=== PATIENT | male | born 1965 | race Caucasian/White ===

== ENCOUNTER 2024-07-04 21:39 | Inpatient (IN) | payer OTHER, SELFPAY ==
[2024-07-04 22:00] VITALS: BP 139/86; PULSE 88; RESP 16; TEMP 36.8; O2SAT 92; BMI 38.6
[2024-07-04 22:30] VITALS: BP 145/91; PULSE 75; O2SAT 93
[2024-07-04 22:36] VITALS: BP 176/51; PULSE 59; O2SAT 100
--- NOTE | 2024-07-04 22:44 | CTR_ITS ---
PROCEDURE INFORMATION: Exam: CT Abdomen And Pelvis With Contrast Exam date and time: 07/04/2024 11:23 PM Age: 58 years old Clinical indication: Nausea and vomiting; Abdominal pain; Generalized; Prior surgery; Surgery date: 6+ months; Surgery type: Gb. Colon resection due to diverticulitis; C/O diffuse abd pain with n/v/d. History of sbo. TECHNIQUE: Imaging protocol: Computed tomography of the abdomen and pelvis with contrast. Radiation optimization: All CT scans at this facility use at least one of these dose optimization techniques: automated exposure control; mA and/or kV adjustment per patient size (includes targeted exams where dose is matched to clinical indication); or iterative reconstruction. Contrast material: OMNI 350; Contrast volume: 100 ml; Contrast route: INTRAVENOUS (IV); COMPARISON: CR (CHEST, ) 05/24/2024 8:41 PM RADIATION DOSE METRICS: Total DLP (mGy-cm): 1471.56 FINDINGS: Lungs: There is a 6.6 mm sized noncalcified pulmonary nodule posterior left lower lobe image number 4 of series 8. For patients at low risk (minimal or absent history of smoking and of other known risk factors), recommend CT Chest at 3-6 months, then consider CT Chest at 18-24 months. For patients at high risk (history of smoking or of other known risk factors), recommend CT Chest at 3-6 months, then CT Chest at 18-24 months. (Reference: João) Liver: There is a diffuse decrease in hepatic parenchymal density, consistent with moderate fatty infiltration. There is no focal abnormality within the liver. Gallbladder and biliary ducts: There has been a cholecystectomy. There is no common bile duct dilation. Pancreas: The pancreas is normal. Spleen: The spleen is normal. Adrenal glands: The adrenal glands are normal. Kidneys and ureters: The kidneys are normal. There is no evidence of hydronephrosis. There is no evidence of renal or ureteral calcifications. Stomach and bowel: There are postsurgical changes of partial sigmoid resection. Moderate diverticulosis is present in the distal colon. There is no evidence of colitis/diverticulitis. There are fluid distended loops of proximal to mid small bowel measuring up to 4 cm in diameter. The more distal small bowel is nondilated. Exact point of transition is not identified but these findings are worrisome for partial small bowel obstruction. Appendix: A normal appendix is identified. Intraperitoneal space: There is no evidence of free intraperitoneal fluid. Vasculature: The aorta is normal. Lymph nodes: There is no evidence of lymphadenopathy. Urinary bladder: Unremarkable as visualized. Reproductive: Unremarkable as visualized. Bones/joints: There is no evidence of acute fracture. Soft tissues: Unremarkable. CT/CT abdomen pelvis w con* [id number] IMPRESSION: 1. Partial small bowel obstruction 2. Fatty liver 3. Left lower lobe pulmonary nodule. Follow-up according to Fleischner society guidelines. REFERENCES: João Yeung, et al. Guidelines for Management of Incidental Pulmonary Nodules Detected on CT Images: From the Fleischner Society 2017. Radiology. 2017;284(1):228-243.
[2024-07-04 23:02] LABS: Basophils % 0.2 %; Eosinophils % 0.5 %; Lymphocytes # 1.1 10^3/uL (0.8-4.8); Lymphocytes % 13.4 %; Mean Corpuscular HGB Conc 33.5 g/dL (30-55); Mean Corpuscular Hemoglobin 29.9 pg (27-33); Mean Corpuscular Volume 89.2 fl (82-101); Mean Platelet Volume 10.3 fL (7.4-10.4); Monocytes # 1.4 10^3/uL (0.2-0.9); Monocytes % 16.5 %; Neutrophils # 5.82 10^3/uL (1.8-7.7); Neutrophils % 69.2 %; Nucleated Red Blood Cells % 0 %; Platelet Count 261 10^3/cmm (157-399); Red Blood Count 5.38 10^6/uL (3.85-5.65); Red Cell Distribution Width 14.1 % (12.1-15.1); White Blood Count 8.42 10^3/uL (3.29-11.43)
--- NOTE | 2024-07-04 23:02 | W.ED.ABDPA2 ---
Documented by User: KHALIF Jhaveri 07/05/24 00:36 HPI - Abdominal Pain General: Chief Complaint: Abdominal Pain Stated Complaint: sever abd pain, v/n/f Time Seen by Provider: 07/04/24 22:44 History of Present Illness: 58-year-old male patient comes in today for complaints of abdominal pain. Patient has a history of gallbladder removal, small bowel obstruction, colon resection secondary to diverticulitis, right lung surgery, diabetes mellitus, hypertension, patient reports nausea with abdominal pain since Friday. Patient reports bowel movements. Patient reports nausea with some vomiting. Associated Symptoms: Reports nausea and vomiting Related Data Previous Rx's Medication Instructions Recorded benzonatate 200 mg capsule 200 mg PO BID PRN cough #14 caps 05/24/24 Allergies Allergy/AdvReac Type Severity Reaction Status Date / Time MANAV Inhibitors Allergy ALGY-Hives Verified 07/04/24 22:03 metronidazole [From Flagyl] Allergy ALGY-Hives Verified 07/04/24 22:03 Review of Systems General: Reports: 10 or more systems reviewed and unremarkable except in HPI and below GI: Reports: abdominal pain, nausea and vomiting PFSH ED PFSH: Medical History (Updated 07/05/24 @ 01:41 by Wagner Desai DO) Diverticulosis Surgical History (Updated 07/05/24 @ 01:29 by Gali Rios MD) History of hemicolectomy S/P cholecystectomy Physical Exam Const: COMMON NORMALS: alert HENMT: COMMON NORMALS: normocephalic HEAD & SCALP: normocephalic Resp: COMMON NORMALS: normal respiratory effort GI: AUSCULTATION: Yes Hyperactive bowel sounds present PALPATION: Yes Firmness to palpation present (GI) (Mild distention) and Yes Tenderness to palpation present (GI) (Generalized tenderness) Extremity: COMMON NORMALS: normal to inspection Neuro: SENSORIUM/ORIENTATION: Yes alert Skin: COMMON NORMALS: turgor normal GENERAL SKIN EXAM: turgor normal Course Vital Signs: Vital signs: Vital Signs Temperature 98.3 F 07/04/24 22:00 Pulse Rate 88 07/04/24 22:00 Respiratory Rate 16 07/04/24 22:00 Blood Pressure 139/86 07/04/24 22:00 Pulse Oximetry 92 07/04/24 22:00 Oxygen Delivery Me thod Room Air 07/04/24 22:00 MDM - Abdominal Pain Medical Decision Making 58-year-old male patient comes in today with complaints of abdominal pain since Friday. Patient reports decreased passing of gas. Patient has had some bowel movements. Patient reports nausea with vomiting. Patient has had a history of bowel obstruction, colon resection, diverticulitis, right lung surgery, diabetes mellitus, hypertension, and cholecystectomy. Patient appears nontoxic. Patient appears in mild to moderate pain. Abdomen is slightly distended with increased bowel sounds. Differential diagnosis includes but not limited to bowel obstruction, ileus, enteritis, appendicitis, dehydration. 1235, Dr. Desai agreed to assume care of my patient. We are awaiting CT report. CT strongly suspicious for bowel obstruction. Lab Data 07/04/24 22:53 07/04/24 22:53 Labs/Radiology: Radiology Impressions Abdomen/Pelvis CT 07/04/24 22:44 IMPRESSION: 1. Partial small bowel obstruction 2. Fatty liver 3. Left lower lobe pulmonary nodule. Follow-up according to Fleischner society guidelines. REFERENCES: João Yeung et al. Guidelines for Management of Incidental Pulmonary Nodules Detected on CT Images: From the Fleischner Society 2017. Radiology. 2017;284(1):228-243. ADDENDUM: 07/05/24 0042 Addendum: THIS REPORT CONTAINS FINDINGS THAT MAY BE CRITICAL TO PATIENT CARE. The findings were verbally communicated via telephone conference with Dr. Desai at 12:41 AM ENTRY LEVEL ACCOUNT EXECUTIVE on 07/05/2024. The findings were acknowledged and understood. Laboratory Results WBC 8.42 10^3/uL (3.29-11.43) 07/04/24 22:53 RBC 5.38 10^6/uL (3.85-5.65) 07/04/24 22:53 Hgb 16.10 g/dL (11.27-16.99) 07/04/24 22:53 Hct 48.0 % (37-53) 07/04/24 22:53 MCV 89.2 fl (82-101) 07/04/24 22:53 MCH 29.9 pg (27-33) 07/04/24 22: MCHC 33.5 g/dL (30-55) 07/04/24 22:53 RDW 14.1 % (12.1-15.1) 07/04/24 22:53 Plt Count 261 10^3/cmm (157-399) 07/04/24 22:53 MPV 10.3 fL (7.4-10.4) 07/04/24 22:53 Neut % (Auto) 69.2 % 07/04/24 22:53 Lymph % (Auto) 13.4 % 07/04/24 22:53 Traill % (Auto) 16.5 % 07/04/24 22:53 Eos % (Auto) 0.5 % 07/04/24 22:53 Baso % (Auto) 0.2 % 07/04/24 22:53 Neut # (Auto) 5.82 10^3/uL (1.8-7.7) 07/04/24 22:53 Lymph # (Auto) 1.1 10^3/uL (0.8-4.8) 07/04/24 22:53 Traill # (Auto) 1.4 10^3/uL (0.2-0.9) H 07/04/24 22:53 Eos # (Auto) 0.0 10^3/uL (0.0-0.8) 07/04/24 22:53 Baso # (Auto) 0.0 10^3/uL (0.0-0.1) 07/04/24 22:53 Nucleated RBC % (auto) 0 % 07/04/24:53 Nucleated RBCs # 0.0 /100WBC 07/04/24 22:53 Sodium 138 mmol/L (136-145) 07/04/24 22:53 Potassium 3.9 mmol/L (3.5-5.1) 07/04/24 22:53 Chloride 96 mmol/L (98-107) L 07/04/24 22:53 Carbon Dioxide 25 mmol/L (22-29) 07/04/24 22:53 Anion Gap 20.9 (5-19) H 07/04/24 22:53 BUN 13 mg/dL (6-20) 07/04/24 22:53 Creatinine 1.2 mg/dL (0.7-1.2) 07/04/24 22:53 GFR Calculation 62.2 mL/min (90-130) L 07/04/24 22:53 Glucose 155 mg/dL (65-115) H 07/04/24 22:53 Calculated Osmolality 289 mOsm/kg (285-295) 07/04/24 22:53 Calcium 9.5 mg/dL (8.5-10.5) 07/04/24 22:53 Total Bilirubin 0.6 mg/dL (0.15-1.2) 07/04/24 22:53 AST 29 U/L (0-40) 07/04/24 22:53 ALT 35 U/L (0-41) 07/04/24 22:53 Alkaline Phosphatase 67 U/L (40-130) 07/04/24 22:53 Total Protein 7.9 g/dL (6.6-8.7) 07/04/24 22:53 Albumin 4.5 g/dL (3.5-5.2) 07/04/24 22:53 Globulin 3.4 g/dL (1.3-4.6) 07/04/24 22:53 Lipase 19 U/L (13-60) 07/04/24 22:53 Discharge Plan Discharge Patient Disposition: Admitted As Inpatient Clinical Impression: SBO (small bowel obstruction) Condition: Fair Prescriptions: No Action benzonatate 200 mg capsule 200 mg PO BID PRN (Reason: cough) Qty: 14 0RF Referrals: Francisco Alberts MD [Primary Care Provider] - Discharge Diet: Usual diet Discharge Activity: Increase activity as tolerated Patient Instructions: Back Pain (ED) Activity Restrictions/Additional Instructions: Follow-up with primary care. Coding Level of Care Code ED Quality Control Clerk for Chg Fwd Documented by User: Wagner Desai DO 07/05/24 01:41 HPI - Abdominal Pain General: Chief Complaint: Abdominal Pain Stated Complaint: sever abd pain, v/n/f Time Seen by Provider: 07/04/24 22:44 Related Data Previous Rx's Medication Instructions Recorded benzonatate 200 mg capsule 200 mg PO BID PRN cough #14 caps 05/24/24 Allergies Allergy/AdvReac Type Severity Reaction Status Date / Time MANAV Inhibitors Allergy ALGY-Hives Verified 07/04/24 22:03 metronidazole [From Flagyl] Allergy ALGY-Hives Verified 07/04/24 22:03 PFSH ED PFSH: Medical History (Updated 07/05/24 @ 01:41 by Wagner Desai DO) Diverticulosis Surgical History (Updated 07/05/24 @ 01:29 by Gali Rios MD) History of hemicolectomy S/P cholecystectomy Course Vital Signs: Vital signs: Vital Signs Temperature 98.3 F 07/04/24 22:00 Pulse Rate 88 07/04/24 22:00 Respiratory Rate 16 07/04/24 22:00 Blood Pressure 139/86 07/04/24 22:00 Pulse Oximetry 92 07/04/24 22:00 Oxygen Delivery Me thod Room Air 07/04/24 22:00 MDM - Abdominal Pain Medical Decision Making 58-year-old male patient comes in today with complaints of abdominal pain since Friday. Patient reports decreased passing of gas. Patient has had some bowel movements. Patient reports nausea with vomiting. Patient has had a history of bowel obstruction, colon resection, diverticulitis, right lung surgery, diabetes mellitus, hypertension, and cholecystectomy. Patient appears nontoxic. Patient appears in mild to moderate pain. Abdomen is slightly distended with increased bowel sounds. Differential diagnosis includes but not limited to bowel obstruction, ileus, enteritis, appendicitis, dehydration. 1235, Dr. Desai agreed to assume care of my patient. We are awaiting CT report. CT strongly suspicious for bowel obstruction. This patient was originally seen by KHALIF An.? I agree with his history, evaluation, and treatment. This patient has a small bowel obstruction, although no distinct transition point is seen. It is likely high-grade, as small bowel loops are distended to 4 cm. Spoke with surgery. Recommendations are IV fluids and NG tube placement. These have been ordered. The hospitalist is seeing the patient for admission. Surgery will consult. Lab Data 07/04/24 22:53 07/04/24 22:53 Labs/Radiology: Radiology Impressions Abdomen/Pelvis CT 07/04/24 22:44 IMPRESSION: 1. Partial small bowel obstruction 2. Fatty liver 3. Left lower lobe pulmonary nodule. Follow-up according to Fleischner society guidelines. REFERENCES: João Yeung et al. Guidelines for Management of Incidental Pulmonary Nodules Detected on CT Images: From the Fleischner Society 2017. Radiology. 2017;284(1):228-243. ADDENDUM: 07/05/24 0042 Addendum: THIS REPORT CONTAINS FINDINGS THAT MAY BE CRITICAL TO PATIENT CARE. The findings were verbally communicated via telephone conference with Dr. Desai at 12:41 AM ENTRY LEVEL ACCOUNT EXECUTIVE on 07/05/2024. The findings were acknowledged and understood. Laboratory Results WBC 8.42 10^3/uL (3.29-11.43) 07/04/24 22:53 RBC 5.38 10^6/uL (3.85-5.65) 07/04/24 22:53 Hgb 16.10 g/dL (11.27-16.99) 07/04/24:53 Hct 48.0 % (37-53) 07/04/24 22:53 MCV 89.2 fl (82-101) 07/04/24 22:53 MCH 29.9 pg (27-33) 07/04/24:53 MCHC 33.5 g/dL (30-55) 07/04/24 22:53 RDW 14.1 % (12.1-15.1) 07/04/24 22:53 Plt Count 261 10^3/cmm (157-399) 07/04/24 22:53 MPV 10.3 fL (7.4-10.4) 07/04/24 22:53 Neut % (Auto) 69.2 % 07/04/24 22:53 Lymph % (Auto) 13.4 % 07/04/24 22:53 Traill % (Auto) 16.5 % 07/04/24 22:53 Eos % (Auto) 0.5 % 07/04/24 22:53 Baso % (Auto) 0.2 % 07/04/24 22:53 Neut # (Auto) 5.82 10^3/uL (1.8-7.7) 07/04/24:53 Lymph # (Auto) 1.1 10^3/uL (0.8-4.8) 07/04/24 22:53 Traill # (Auto) 1.4 10^3/uL (0.2-0.9) H 07/04/24 22:53 Eos # (Auto) 0.0 10^3/uL (0.0-0.8) 07/04/24 22:53 Baso # (Auto) 0.0 10^3/uL (0.0-0.1) 07/04/24 22:53 Nucleated RBC % (auto) 0 % 07/04/24 22:53 Nucleated RBCs # 0.0 /100WBC 07/04/24 22:53 Sodium 138 mmol/L (136-145) 07/04/24 22:53 Potassium 3.9 mmol/L (3.5-5.1) 07/04/24 22:53 Chloride 96 mmol/L (98-107) L 07/04/24 22:53 Carbon Dioxide 25 mmol/L (22-29) 07/04/24 22:53 Anion Gap 20.9 (5-19) H 07/04/24 22:53 BUN 13 mg/dL (6-20) 07/04/24 22:53 Creatinine 1.2 mg/dL (0.7-1.2) 07/04/24 22:53 GFR Calculation 62.2 mL/min (90-130) L 07/04/24 22:53 Glucose 155 mg/dL (65-115) H 07/04/24 22:53 Calculated Osmolality 289 mOsm/kg (285-295) 07/04/24 22:53 Calcium 9.5 mg/dL (8.5-10.5) 07/04/24 22:53 Total Bilirubin 0.6 mg/dL (0.15-1.2) 07/04/24 22:53 AST 29 U/L (0-40) 07/04/24 22:53 ALT 35 U/L (0-41) 07/04/24 22:53 Alkaline Phosphatase 67 U/L (40-130) 07/04/24 22:53 Total Protein 7.9 g/dL (6.6-8.7) 07/04/24 22:53 Albumin 4.5 g/dL (3.5-5.2) 07/04/24 22:53 Globulin 3.4 g/dL (1.3-4.6) 07/04/24 22:53 Lipase 19 U/L (13-60) 07/04/24 22:53 All radiology interpretation(s) finalized by discharge Discharge Plan Discharge Patient Disposition: Admitted As Inpatient Clinical Impression: SBO (small bowel obstruction) Condition: Fair Prescriptions: No Action benzonatate 200 mg capsule 200 mg PO BID PRN (Reason: cough) Qty: 14 0RF Referrals: Francisco Alberts MD [Primary Care Provider] - Discharge Diet: Usual diet Discharge Activity: Increase activity as tolerated Patient Instructions: Back Pain (ED) Activity Restrictions/Additional Instructions: Follow-up with primary care. Coding Level of Care Code ED Quality Control Clerk for Alyssia Betancourt
[2024-07-04 23:18] LABS: Alanine Aminotransferase 35 U/L (0-41); Albumin Level 4.5 g/dL (3.5-5.2); Alkaline Phosphatase 67 U/L (40-130); Anion Gap 20.9 (5-19); Aspartate Amino Transferase 29 U/L (0-40); Blood Urea Nitrogen 13 mg/dL (6-20); Calcium 9.5 mg/dL (8.5-10.5); Carbon Dioxide 25 mmol/L (22-29); Chloride 96 mmol/L (98-107); Creatinine Clr Calc Pharmacy 93.2651; Globulin 3.4 g/dL (1.3-4.6); Glomerular Filtration Rate 62.2 mL/min (90-130); Glucose 155 mg/dL (65-115); Lipase 19 U/L (13-60); Osmolality Calculated 289 mOsm/kg (285-295); Potassium 3.9 mmol/L (3.5-5.1); Sodium 138 mmol/L (136-145); Total Bilirubin 0.6 mg/dL (0.15-1.2); Total Protein 7.9 g/dL (6.6-8.7)
[2024-07-04] MEDS: iohexol 350 mg/mL 500 mL Btl (per mL) IV (23:25)
[2024-07-04] MEDS: sodium chloride 0.9% 1,000 ML 999 ML IV (23:51)
[2024-07-04] MEDS: ondansetron 2 mg/ML SDV 2 mL 4 MG IVP (23:51)
[2024-07-05] VITALS (12 sets, daily range): BP systolic 118–155; BP diastolic 72–105; PULSE 69–83; RESP 14–17; TEMP 36.6–37.3; O2SAT 91–95; BMI 38.6
--- NOTE | 2024-07-05 00:53 | XRR_ITS ---
PROCEDURE INFORMATION: Exam: XR Chest Exam date and time: 07/05/2024 2:04 AM Age: 58 years old Clinical indication: Device placement; Ng tube; Check S/P ng placement; Additional info: Post ng tube TECHNIQUE: Imaging protocol: Radiologic exam of the chest. Views: 1 view. COMPARISON: 1. CR (CHEST, ) 05/24/2024 8:[address] abdomen pelvis w con* [id number] 07/04/2024 11:23 PM FINDINGS: Tubes, catheters and devices: NG tube satisfactorily positioned, with tip in the stomach. Lungs: Persistently low lung volumes with chronic elevation of the right hemidiaphragm. No consolidation or pulmonary edema. Small lung nodule seen on the CT abdomen in the left lower lobe not visualized on this chest radiograph. Pleural spaces: No pneumothorax or pleural effusion. Heart/Mediastinum: Cardiomediastinal silhouette is within normal limits. Bones/joints: No acute osseous abnormality. XR/XR chest 1V portable [id number] IMPRESSION: 1. No acute findings. 2. NG tube satisfactorily positioned, with tip in the stomach.
--- NOTE | 2024-07-05 01:01 | P.HP_ITS ---
Providers/Chief Complaint 2 Primary Care Provider: Francisco Alberts MD Chief Complaint: sever abd pain, v/n/f History of Present Illness Rodriguez Duke is a 58 year old male with relevant history of cholecystectomy, hemicolectomy, diverticulosis, presented with chief complaint of abdominal pain nausea vomiting. Workup in the ER consistent with high-grade bowel obstruction, NG tube placed. General surgery consulted. Patient had hemicolectomy in 2009, cholecystectomy 2012, symptoms started of abdominal pain nausea vomiting Friday, since Friday he has had experience 4 episodes of emesis, is at the bedside stating that he had a fever on Friday as well 1-1.6, patient is not endorsing any myalgias, shortness of breath, chest pain, last bowel movement was on Friday, no history of CHF, ND or coronary disease. Patient does not smoke. Drinks occasionally. Last episode of SBO was 2 years ago which was managed conservatively. CT abdomen pelvis impression: There are fluid distended loops of proximal to mid small bowel measuring up to 4 cm in diameter. The more distal small bowel is nondilated. Exact point of transition is not identified but these findings are worrisome for partial small bowel obstruction. Review of Systems 2 Const: Reports: fever(s) and chills Eyes: Denies: change in vision ENMT: Denies: throat pain Card: Denies: chest pain Resp: Denies: dyspnea GI: Reports: abdominal pain, nausea and vomiting Musc: Reports: back pain Medications/Allergies Home Medications Medication Instructions Recorded Confirmed Last Taken Type benzonatate 200 mg capsule 200 mg PO BID PRN cough #14 caps 05/24/24 Unknown Rx Allergies Allergy/AdvReac Type Severity Reaction Status Date / Time MANAV Inhibitors Allergy ALGY-Hives Verified 07/04/24 22:03 metronidazole [From Flagyl] Allergy ALGY-Hives Verified 07/04/24 22:03 PFSH Acute 2 PFSH: Medical History (Updated 07/05/24 @ 01:29 by Gali Rios MD) Diverticulosis Surgical History (Updated 07/05/24 @ 01:29 by Gali Rios MD) History of hemicolectomy S/P cholecystectomy Vitals/I&O/Wt Last Vital Signs Temp 98.3 F 07/04/24 22:00 Pulse 88 02/02/25 22:00 Resp 16 07/04/24 22:00 BP 139/86 07/04/24 22:00 Pulse Ox 92 07/04/24 22:00 O2 Del Method Room Air 07/04/24 22:00 07/04/24 07/04/24 07/05/24 14:59 22:59 06:59 Intake Total 0 / 0 Balance 0 / 0 Weight last 48 hrs Weight 129.274 kg Physical Exam 2 Narrative: Morbidly obese Awake and alert No acute distress Abdomen hyperactive bowel sounds Tender on deep palpation Lower extremity no edema GCS 15 S1, S2 Currently room air AOx4 Hemodynamically stable Data 07/04/24 22:53 07/04/24 22:53 A&P Assessment and plan (1) Hypokalemia: (2) SBO (small bowel obstruction): Plan High-grade SBO N.p.o. Start IV fluids Hypokalemia: Potassium replenished General Surgery consulted Conservative management for now NG tube to be placed in the ER Patient is hemodynamic stable Multiple abdominal surgeries in the past, last bowel obstruction episode was 2 years ago Start Protonix as GI prophylaxis DVT prophylaxis: Heparin Patient is endorsing fever 101.6 on Friday, will request respiratory panel Attestations 2 Medical Necessity Statement*: More than 2 midnights anticipated Diagnoses Hypokalemia E87.6 SBO (small bowel obstruction) K56.609
[2024-07-05] MEDS: cetacaine Spray 20 gm Can 1 SPRAY TOPICAL (01:59)
[2024-07-05] MEDS: lidocaine 1% 5 ML in potassium chloride premix 100 ML 26.25 ML IV (02:54)
[2024-07-05] MEDS: heparin 5,000 unit/mL INJ 1 mL 5000 UNIT SUBCUT ×2 (02:54→13:11)
[2024-07-05] MEDS: dextrose 5%-sod chloride 0.9% 1,000 ML 100 ML IV ×3 (02:55→22:20)
[2024-07-05 03:19] LABS: Bilirubin Urine Negative (Negative); Blood Urine Negative (Negative); Glucose Urine UA Negative (Normal); Ketones Urine Negative (Negative); Leukocyte Esterase Urine Negative (Negative); Nitrate Urine Negative (Negative); Protein Urine Trace (Negative); Urine Appearance Clear (CLEAR); Urine Color Yellow (Yellow); Urobilinogen Urine 0.2 mg/dL (Negative)
[2024-07-05 03:25] LABS: Add Urine Microscopic? YES; Bacteria Urine None Seen /hpf; Hyaline Casts Urine 2.05 /lpf; RBC Urine 0-2 /hpf (0-2); Squamous Epithelial Cell Urine 0-5 /hpf (0-5); WBC Urine 0-5 /hpf (0-5)
[2024-07-05 03:47] LABS: Specific Gravity, Urine 1.079 (1.005-1.030)
[2024-07-05 06:35] LABS: Anion Gap 19.1 (5-19); Blood Urea Nitrogen 12 mg/dL (6-20); Calcium 8.7 mg/dL (8.5-10.5); Carbon Dioxide 24 mmol/L (22-29); Chloride 98 mmol/L (98-107); Creatinine Clr Calc Pharmacy 111.9182; Glomerular Filtration Rate 76.7 mL/min (90-130); Glucose 137 mg/dL (65-115); Osmolality Calculated 286 mOsm/kg (285-295); Potassium 4.1 mmol/L (3.5-5.1); Sodium 137 mmol/L (136-145)
[2024-07-05 06:36] LABS: Basophils % 0.2 %; Eosinophils % 0.6 %; Hematocrit 42.9 % (37-53); Lymphocytes # 1.3 10^3/uL (0.8-4.8); Lymphocytes % 19.6 %; Mean Corpuscular HGB Conc 34.7 g/dL (30-55); Mean Corpuscular Hemoglobin 30.1 pg (27-33); Mean Corpuscular Volume 86.7 fl (82-101); Mean Platelet Volume 10.6 fL (7.4-10.4); Monocytes # 1.2 10^3/uL (0.2-0.9); Monocytes % 19.2 %; Neutrophils # 3.86 10^3/uL (1.8-7.7); Neutrophils % 60.1 %; Nucleated Red Blood Cells % 0 %; Platelet Count 227 10^3/cmm (157-399); Red Blood Count 4.95 10^6/uL (3.85-5.65); Red Cell Distribution Width 14.1 % (12.1-15.1); White Blood Count 6.42 10^3/uL (3.29-11.43)
--- NOTE | 2024-07-05 06:51 | P.CONIM_ITS ---
Providers/Reason For Consult 2 Consulting Physician/Specialty*: General Surgery Reason for Consult*: Small bowel obstruction Attending Physician: Gali Rios MD Primary Care Provider: Francisco Alberts MD History of Present Illness History of Present Illness Rodriguez Duke is a 58 year old male who had a history of colectomy for diverticulosis about 20 years ago. Since then he has had 2 episodes of a small bowel obstruction last 1 to 2 years ago. States that since Friday he has been having diarrhea abdominal pain distention nausea and vomit. Last bowel movement was yesterday, he endorses passing gas today overnight. CAT scan done in the ED showed evidence of possible partial SBO without evident transition point. Review of Systems 2 General: Reports: 10 or more systems reviewed and unremarkable except in HPI and below Medications/Allergies Home Medications Medication Instructions Recorded Confirmed Last Taken Type carvedilol 25 mg tablet 25 mg PO BID 07/05/24 07/05/24 Unknown History ergocalciferol (vitamin D2) 1,250 1,250 mcg PO DAILY 07/05/24 07/05/24 Unknown History mcg (50,000 unit) capsule (Vitamin D2) hydrochlorothiazide 12.5 mg capsule 12.5 mg PO DAILY 07/05/24 07/05/24 Unknown History losartan 100 mg tablet 100 mg PO DAILY 07/05/24 07/05/24 Unknown History pantoprazole 40 mg tablet,delayed 40 mg PO DAILY 07/05/24 07/05/24 Unknown History release Allergies Allergy/AdvReac Type Severity Reaction Status Date / Time MANAV Inhibitors Allergy ALGY-Hives Verified 07/04/24 22:03 metronidazole [From Flagyl] Allergy ALGY-Hives Verified 07/04/24 22:03 Current Medications Generic Name Dose Route Start Last Admin Trade Name Freq PRN Reason Stop Dose Admin Heparin Sodium (Porcine) 5,000 unit 07/05/24 01:15 07/05/24 02:54 Heparin 5,000 Unit/Ml Inj 1 Ml SUBCUT 5,000 unit Q12H SAIGE Administration Dextrose/Sodium Chloride 1,000 mls @ 100 mls/hr 07/05/24 01:15 07/05/24 02:55 Dextrose 5%-Sod Chloride 0.9% IV 100 mls/hr .Q10H SAIGE Administration PFSH Acute 2 PFSH: Medical History (Updated 07/05/24 @ 01:41 by Wagner Desai DO) Diverticulosis Surgical History (Updated 07/05/24 @ 01:29 by Gali Rios MD) History of hemicolectomy S/P cholecystectomy Vitals/I&O/Wt Last Vital Signs Temp 97.8 F 07/05/24 03:28 Pulse 81 07/05/24 03:32 Resp 17 07/05/24 03:32 BP 149/86 07/05/24 03:28 Pulse Ox 94 07/05/24 03:32 O2 Del Method Room Air 07/05/24 03:32 07/04/24 07/04/24 07/05/24 14:59 22:59 06:59 Intake Total 0 / 0 1000 / 1000 Output Total 500 / 500 Balance 0 / 0 500 / 500 Weight last 48 hrs Weight 285 lb Weight 285 lb Weight 285 lb Physical Exam 2 Narrative: General : Patient is well developed , no acute distress, oriented x3 Head : Normal cephalic, a-traumatic. Nose : Mucous membranes are without erythema. Lungs : Equal chest rise bilaterally, no use of accessory muscles, trachea is midline. CV : Rate and rhythm are normal. Abdomen : Soft, nontender, minimally distended, there is good bowel sounds in all quadrants, NG tube is in place the output has been clear bilious Extremities : No edema. Upper extremities are normal bilaterally. Back : non-tender to palpation, no CVA tenderness. Data 07/05/24 05:47 07/05/24 05:47 A&P Assessment and plan (1) SBO (small bowel obstruction): Plan 58-year-old male with partial SBO in the setting of previous intra-abdominal surgery and history of previous SBO's. Agree with nonoperative management we will continue decompression for the next 24 hours and tomorrow we will do a Gastrografin trial. The patient tolerates a trial he will be able to advance diet as tolerated. In the interim continue NG tube decompression with NG to low intermittent suction, IV fluid resuscitation. I have encouraged the patient to ambulate, he can get the tube clamped to ambulate 2 or 3 times a day and as soon as he returns to his room the tube should be connected back to suction. He shows understanding agrees with the plan. -Continue NG decompression -Gastrografin trial tomorrow -Ambulate as tolerated- -appreciate management per medical team Coding Level of Care Code Acute Code for Chg Fwd Diagnoses SBO (small bowel obstruction) K56.609
[2024-07-05 08:53] LABS: Adenovirus Not Detected (NOT DETECT); Chlamydia Pneumoniae Not Detected (NOT DETECT); Coronavirus 229E,HKU1,NL63,OC4 Not Detected (NOT DETECT); Human Metapneumovirus Not Detected (NOT DETECT); Human Rhinovirus/Enterovirus Not Detected (NOT DETECT); Influenza A Not Detected (NOT DETECT); Influenza A H1 Not Detected (NOT DETECT); Influenza A H1-2009 Not Detected (NOT DETECT); Influenza A H3 Not Detected (NOT DETECT); Influenza B Not Detected (NOT DETECT); Mycoplasma Pneumoniae Not Detected (NOT DETECT); Parainfluenza Virus Type 1 Not Detected (NOT DETECT); Parainfluenza Virus Type 2 Not Detected (NOT DETECT); Parainfluenza Virus Type 3 Not Detected (NOT DETECT); Parainfluenza Virus Type 4 Not Detected (NOT DETECT); Respiratory Syncytial Virus A Not Detected (NOT DETECT); Respiratory Syncytial Virus B Not Detected (NOT DETECT); SARS-COV-2 Not Detected (NOT DETECT)
[2024-07-05] MEDS: pantoprazole 40 mg SDV IVP ×2 (09:53→18:52)
--- NOTE | 2024-07-05 10:31 | P.PN_ITS ---
Subjective 2 Subjective: He is feeling slightly better with NGT decompression. Very minimal flatus. Vitals/I&O/Wt Last Vital Signs Temp 98.6 F 07/05/24 07:28 Pulse 78 07/05/24 07:56 Resp 16 07/05/24 07:56 BP 145/88 07/05/24 07:28 Pulse Ox 91 07/05/24 07:56 O2 Del Method Room Air 07/05/24 07:56 07/04/24 07/05/24 07/05/24 22:59 06:59 14:59 Intake Total 0 / 0 1000 / 1000 Output Total 500 / 500 300 / 300 Balance 0 / 0 500 / 500 -300 / -300 Weight last 48 hrs Weight 129.274 kg Weight 129.274 kg Weight 129.274 kg Physical Exam 2 Narrative: at bedside. Const: COMMON NORMALS: patient oriented x3 and alert GENERAL APPEARANCE: c ooperative ORIENTATION/CONSCIOUSNESS: Yes awake HENMT: COMMON NORMALS: oropharynx normal Neck/C-Spine: COMMON NORMALS: no JVD Resp: COMMON NORMALS: normal respiratory effort and clear to auscultation bilaterally AUSCULTATION: clear to auscultation bilaterally Cardio: COMMON NORMALS: no JVD, regular rhythm, S1 normal heart sound present, S2 normal heart sound present and No murmurs present (Cardio) RHYTHM: regular rhythm HEART SOUNDS: S1 normal heart sound present and S2 normal heart sound present GI: COMMON NORMALS: Normal to inspection, nondistended, normoactive bowel sounds present, Soft to palpation and non-tender PALPATION: Yes Soft to palpation Extremity: COMMON NORMALS: no joint enlargement and no pedal edema Neuro: COMMON NORMALS: patient oriented x3 and moves all extremities S ENSORIUM/ORIENTATION: Yes alert Skin: COMMON NORMALS: no rashes or lesions noted GENERAL SKIN EXAM: no rashes or lesions noted Data 07/05/24 05:47 07/05/24 05:47 A&P Assessment and plan (1) Hypokalemia: (2) SBO (small bowel obstruction): Plan SBO: Gastric output of about 900 mL via NGT. Unable to tolerate any food or drink by mouth. Requiring NGT suction/decompression. Reviewed vitals, intake and output, CBC, CMP, UA, respiratory viral panel, CT abdomen pelvis, chest x-ray, surgeons note. Discussed with nursing. Discussed with manager rn case. Discussed with patient and his at bedside. He has been evaluated by surgery. Continuing with NGT decompression. Also instructed to ambulate 2-3 times a day with clamping of NGT. Confirmed with nursing staff. Pending reassessment, possible Gastrografin study tomorrow. Continue bowel rest. IV hydration, monitor for risk of fluid overload with IV fluids. Hypokalemia: Reviewed potassium, this has been replaced. Potassium replenished Multiple abdominal surgeries in the past, last bowel obstruction episode was 2 years ago Protonix DVT prophylaxis: Heparin Patient is endorsing fever 101.6 on Friday, reviewed respiratory panel, negative. UA unremarkable. Chest x-ray without suggestion of pneumonia. Chronic elevation of right hemidiaphragm. Lung nodule: Incidentally seen small lung nodule in left lower lobe. Will need to follow up. Fatty liver disease: Incidentally noted on CT. Will need follow-up. Attestations 2 Medical Necessity Statement*: Continue admission for assessment and management of small bowel obstruction. Diagnoses Hypokalemia E87.6 SBO (small bowel obstruction) K56.609
--- NOTE | 2024-07-05 19:43 | PC.NURSE ---
Patient walked 5 laps around both nurses station today. Patient has also been up in the chair all afternoon. Has had very, loose runny stools today as well.
[2024-07-06] MEDS: heparin 5,000 unit/mL INJ 1 mL 5000 UNIT SUBCUT ×2 (01:19→16:20)
[2024-07-06 03:00] VITALS: BP 161/76; PULSE 67; RESP 16; TEMP 36.7; O2SAT 95
[2024-07-06 06:36] LABS: Magnesium 2.1 mg/dL (1.7-2.3)
--- NOTE | 2024-07-06 07:46 | PC.NURSE ---
Dr. Albrecht Pulled NG tube from patient this am, stated patient could start a clear liquid diet and fluids maybe discontinued.
[2024-07-06 08:11] VITALS: BP 167/95; PULSE 67; RESP 16; TEMP 36.7; O2SAT 93
--- NOTE | 2024-07-06 08:15 | P.PN_ITS ---
Subjective 2 Subjective: 58-year-old male who is admitted to the hospital with partial small bowel obstruction. Patient has been doing okay over the last 24 hours, has had 2 bowel movements and has been passing gas. Endorses having some cramping but no significant pain like yesterday. NG tube output is clear bilious Vitals/I&O/Wt Last Vital Signs Temp 98.1 F 07/06/24 08:11 Pulse 67 07/06/24 08:11 Resp 16 07/06/24 08:11 BP 167/95 07/06/24 08:11 Pulse Ox 93 07/06/24 08:11 O2 Del Method Room Air 07/06/24 08:11 07/05/24 07/06/24 07/06/24 22:59 06:59 14:59 Intake Total 913.333 / 1913.333 0 / 1913.333 Output Total 170 / 870 Balance 743.333 / 1043.333 0 / 1043.333 Weight last 48 hrs Weight 292 lb 8 oz Weight 285 lb Weight 285 lb Weight 285 lb Physical Exam 2 GI: OTHER: Abdomen is soft nontender minimally distended. Has good bowel sounds in 4 quadrants Data 07/05/24 05:47 07/05/24 05:47 A&P Assessment and plan (1) SBO (small bowel obstruction): Plan Patient admitted with partial SBO. At the moment of my evaluation this morning SBO appears to be resolving. While it is my usual practice to do a Gastrografin trial for cases of small bowel obstruction, unfortunately at the moment there is no Gastrografin in our institution. And taking in consideration that patient symptoms have completely improved and he is passing gas and having bowel movements I think it will be appropriate to remove NG tube and start with a clear liquid diet and osmotic laxative. If patient tolerates clear liquids he can be advanced to GI soft diet and he can be transition to the outpatient setting and GI soft diet. PDMP PDMP Reviewed: Not Reviewed Attestations 2 Medical Necessity Statement*: Per medical team Coding Level of Care Code Acute Code for Chg Fwd Diagnoses SBO (small bowel obstruction) K56.609
[2024-07-06 08:24] LABS: Basophils % 0.4 %; Eosinophils # 0.1 10^3/uL (0.0-0.8); Eosinophils % 2.4 %; Hematocrit 40.6 % (37-53); Lymphocytes # 1.7 10^3/uL (0.8-4.8); Lymphocytes % 34.9 %; Mean Corpuscular HGB Conc 32.8 g/dL (30-55); Mean Corpuscular Hemoglobin 29.9 pg (27-33); Mean Corpuscular Volume 91.2 fl (82-101); Mean Platelet Volume 11.1 fL (7.4-10.4); Monocytes # 0.9 10^3/uL (0.2-0.9); Monocytes % 18.9 %; Neutrophils # 2.15 10^3/uL (1.8-7.7); Neutrophils % 43.2 %; Nucleated Red Blood Cells % 0 %; Platelet Count 203 10^3/cmm (157-399); Red Blood Count 4.45 10^6/uL (3.85-5.65); Red Cell Distribution Width 14.3 % (12.1-15.1); White Blood Count 4.98 10^3/uL (3.29-11.43)
[2024-07-06 08:31] VITALS: PULSE 78; RESP 16; O2SAT 94
[2024-07-06 08:44] LABS: Anion Gap 15.8 (5-19); Blood Urea Nitrogen 11 mg/dL (6-20); Calcium 8.4 mg/dL (8.5-10.5); Carbon Dioxide 25 mmol/L (22-29); Chloride 103 mmol/L (98-107); Glomerular Filtration Rate 76.7 mL/min (90-130); Glucose 118 mg/dL (65-115); Osmolality Calculated 290 mOsm/kg (285-295); Potassium 3.8 mmol/L (3.5-5.1); Sodium 140 mmol/L (136-145)
[2024-07-06] MEDS: polyethylene glycol 3350 Pkt 17 gm PO ×2 (09:03→18:12)
[2024-07-06] MEDS: pantoprazole 40 mg SDV IVP ×2 (09:04→18:12)
--- NOTE | 2024-07-06 10:07 | PC.CHAP ---
Pastoral Care Encounter/Spiritual Assessment Type of Contact [] Declined glass engraver visit [] Patient/Family/Request visit [] Outpatient visit [] Follow-up visit [] Physician referral [] Code/Alert [x] Routine visit [] Staff referral [] Actively dying [] Patient sleeping [] Family support [] [] Out of room [] Palliative care [] [] Receiving care in room [] Pre-surgical visit [] Trauma [] Long length of stay [] ICU visit [] Other: Relational/Emotional Strength [x] Patient feels connected with others/family/visitors/staff [] Distress [] Loneliness/isolation [] Abandonment Spirituality of Patient [x] Person of Barbara [] Attends Yazdanism of their Barbara [x] Believes in Prayer [] Reads Bible or Yazdanism materials [] There are Spiritual issues to be addressed Interventional Pain Physician Interventions [x] Prayer [x] Active listening [] Non-anxious presence [x] Spiritual/emotional support [] Crisis/trauma care [] Spiritual counseling [] Bereavement support [] Provided bereavement packet [] Provided Bible/devotional materials [] Provided toy/stuffed animal, coloring book to patient or family member [] Provided Communion [] Anointing/Igo [] Salvation [x] Completed spiritual assessment [] Other: Impact on Illness or Injury [] Angry [] Fearful [] Anxious [] Often cries [] Exhaustion [] Unable to work [] Unable to attend roman catholic [] Unable to walk/stand [] Unable to read [] Unable to drive [] Unable to eat/drink [] Unable to sleep [] Unable to be with family [] Patient intubated [] Other: Summary Time spent with patient 5 min
[2024-07-06 11:48] VITALS: BP 150/82; PULSE 68; RESP 16; TEMP 36.6; O2SAT 96
--- NOTE | 2024-07-06 15:26 | PM.MISC ---
Miscellaneous Note Purpose of Documentation: Update on patient care Note: Patient has been doing well today, tolerating diet, passing gas, has been ambulating. Has not had a bowel movement since this morning but patient progression has been favorable, without recurrent nausea or vomiting and with a benign abdominal exam with good bowel sounds. He may be able to transition to the outpatient setting later today with warning signs. unless clinical status changes. At the time of my evaluation he is abdominal exam is benign there is positive bowel sounds in all quadrants there is no nausea and vital signs are stable.
[2024-07-06 15:53] VITALS: BP 161/84; PULSE 62; RESP 18; TEMP 36.6; O2SAT 97
--- NOTE | 2024-07-06 16:54 | PM.DCS ---
Discharge Providers Date of Admission: 07/05/24 01:03 Date of Discharge: July 06, 2024 Attending Provider at Admission: Gali Rios MD Attending Provider at Discharge: Oleg Saldana Primary Care Provider: Francisco Alberts MD Diagnoses at Discharge Discharge Diagnosis (1) SBO (small bowel obstruction): Status: Acute Reason for Visit Reason for Visit: sever abd pain, v/n/f Hospital Course Hospital Course Pleasant 58-year-old gentleman was admitted and managed for small bowel obstruction which improved with conservative management with NG decompression, bowel rest, IV hydration, with holding of HCTZ, started on bowel regimen. Had a small bowel movement. Tolerating clear liquids, advancing to GI soft diet prior to discharge. Please follow-up with regards to partial small bowel obstruction. Additionally please follow-up incidentally found small left lower lobe pulmonary nodule incidentally seen on CT, 6.6 mm in size. Please see CT results. Follow-up according to Fleischner Society guidelines. Additionally please follow-up regarding incidentally found fatty liver disease. Physical Exam Narrative: Ambulating in the hallway. NG tube is out. So far tolerating clear liquids. Discharge Data Studies Completed and Pending Completed Studies During Hospitalization Category Date Time Status CT abdomen pelvis w con* [id number] Stat Cat Scan 07/04/24 22:44 Completed XR chest 1V portable [id number] Stat Exams 07/05/24 00:53 Completed Pending at discharge Category Date Time Status Basic Metabolic Panel AM LABS Lab 07/07/24 04:00 Ordered Basic Metabolic Panel AM LABS Lab 07/08/24 04:00 Ordered Basic Metabolic Panel AM LABS Lab 07/09/24 04:00 Ordered Complete Blood Count w/Auto AM LABS Lab 07/07/24 04:00 Ordered Complete Blood Count w/Auto AM LABS Lab 07/08/24 04:00 Ordered Complete Blood Count w/Auto AM LABS Lab 07/09/24 04:00 Ordered Radiology Impressions Abdomen/Pelvis CT 07/04/24 22:44 IMPRESSION: 1. Partial small bowel obstruction 2. Fatty liver 3. Left lower lobe pulmonary nodule. Follow-up according to Fleischner society guidelines. REFERENCES: João Yeung, et al. Guidelines for Management of Incidental Pulmonary Nodules Detected on CT Images: From the Fleischner Society 2017. Radiology. 2017;284(1):228-243. ADDENDUM: 07/05/24 0042 Addendum: THIS REPORT CONTAINS FINDINGS THAT MAY BE CRITICAL TO PATIENT CARE. The findings were verbally communicated via telephone conference with Dr. Desai at 12:41 AM [employer] MECH[employer]IC HELPER on 07/05/2024. The findings were acknowledged and understood. Chest X-Ray 07/05/24 00:53 IMPRESSION: 1. No acute findings. 2. NG tube satisfactorily positioned, with tip in the stomach. Laboratory Results WBC 4.98 10^3/uL (3.29-11.43) 07/06/24 05:47 RBC 4.45 10^6/uL (3.85-5.65) 07/06/24 05:47 Hgb 13.30 g/dL (11.27-16.99) 07/06/24 05:47 Hct 40.6 % (37-53) 07/06/24 05:47 MCV 91.2 fl (82-101) D 07/06/24 05:47 MCH 29.9 pg (27-33) 07/06/24 05:47 MCHC 32.8 g/dL (30-55) D 07/06/24 05:47 RDW 14.3 % (12.1-15.1) 07/06/24 05:47 Plt Count 203 10^3/cmm (157-399) 07/06/24 05:47 MPV 11.1 fL (7.4-10.4) H 07/06/24 05:47 Neut % (Auto) 43.2 % 07/06/24 05:47 Lymph % (Auto) 34.9 % 07/06/24 05:47 [place] % (Auto) 18.9 % 07/06/24 05:47 Eos % (Auto) 2.4 % 07/06/24 05:47 Baso % (Auto) 0.4 % 07/06/24 05:47 Neut # (Auto) 2.15 10^3/uL (1.8-7.7) 07/06/24 05:47 Lymph # (Auto) 1.7 10^3/uL (0.8-4.8) 07/06/24 05:47 [place] # (Auto) 0.9 10^3/uL (0.2-0.9) 07/06/24 05:47 Eos # (Auto) 0.1 10^3/uL (0.0-0.8) 07/06/24 05:47 Baso # (Auto) 0.0 10^3/uL (0.0-0.1) 07/06/24 05:47 Nucleated RBC % (auto) 0 % 07/06/24 05:47 Nucleated RBCs # 0.0 /100WBC 07/06/24 05:47 Sodium 140 mmol/L (136-145) 07/06/24 05:47 Potassium 3.8 mmol/L (3.5-5.1) 07/06/24 05:47 Chloride 103 mmol/L (98-107) 07/06/24 05:47 Carbon Dioxide 25 mmol/L (22-29) 07/06/24 05:47 Anion Gap 15.8 (5-19) 07/06/24 05:47 BUN 11 mg/dL (6-20) 07/06/24 05:47 Creatinine 1.0 mg/dL (0.7-1.2) 07/06/24 05:47 GFR Calculation 76.7 mL/min (90-130) L 07/06/24 05:47 Glucose 118 mg/dL (65-115) H 07/06/24 05:47 Calculated Osmolality 290 mOsm/kg (285-295) 07/06/24 05:47 Calcium 8.4 mg/dL (8.5-10.5) L 07/06/24 05:47 Magnesium 2.1 mg/dL (1.7-2.3) 07/06/24 05:47 Total Bilirubin 0.6 mg/dL (0.15-1.2) 07/04/24 22:53 AST 29 U/L (0-40) 07/04/24 22:53 ALT 35 U/L (0-41) 07/04/24 22:53 Alkaline Phosphatase 67 U/L (40-130) 07/04/24 22:53 Total Protein 7.9 g/dL (6.6-8.7) 07/04/24 22:53 Albumin 4.5 g/dL (3.5-5.2) 07/04/24 22:53 Globulin 3.4 g/dL (1.3-4.6) 07/04/24 22:53 Lipase 19 U/L (13-60) 07/04/24 22:53 Urine Color Yellow (Yellow) 07/05/24 02:09 Urine Appearance Clear (CLEAR) 07/05/24 02:09 Urine pH 6.0 (5-7) 07/05/24 02:09 Ur Specific [place] 1.079 (1.005-1.030) H 07/05/24 02:09 Urine Protein Trace (Negative) A 07/05/24 02:09 Urine Glucose (UA) Negative (Normal) 07/05/24 02:09 Urine Ketones Negative (Negative) 07/05/24 02:09 Urine Blood Negative (Negative) 07/05/24 02:09 Urine Nitrate Negative (Negative) 07/05/24 02:09 Urine Bilirubin Negative (Negative) 07/05/24 02:09 Urine Urobilinogen 0.2 mg/dL (Negative) 07/05/24 02:09 Ur Leukocyte Esterase Negative (Negative) 07/05/24 02:09 Urine RBC 0-2 /hpf (0-2) 07/05/24 02:09 Urine WBC 0-5 /hpf (0-5) 07/05/24 02:09 Ur Squamous Epith Cells 0-5 /hpf (0-5) 07/05/24 02:09 Amorphous Sediment Not Reportable 07/05/24 02:09 Urine Bacteria None seen /hpf (NONE) 07/05/24 02:09 Hyaline Casts 2.05 /lpf 07/05/24 02:09 Adenovirus (PCR) Not detected (NOT DETECT) 07/05/24 06:15 C. pneumoniae DNA (PCR) Not detected (NOT DETECT) 07/05/24 06:15 Coronavirus 229E (PCR) Not detected (NOT DETECT) 07/05/24 06:15 Human Metapneumovir PCR Not detected (NOT DETECT) 07/05/24 06:15 Influenza A (H1) PCR Not detected (NOT DETECT) 07/05/24 06:15 Influ A (H1/09) PCR Not detected (NOT DETECT) 07/05/24 06:15 Influenza A (H3) PCR Not detected (NOT DETECT) 07/05/24 06:15 Influenza Type A (PCR) Not detected (NOT DETECT) 07/05/24 06:15 Influenza Type B (PCR) Not detected (NOT DETECT) 07/05/24 06:15 M. pneumoniae (PCR) Not detected (NOT DETECT) 07/05/24 06:15 Parainfluenza 1 (PCR) Not detected (NOT DETECT) 07/05/24 06:15 Parainfluenza 2 (PCR) Not detected (NOT DETECT) 07/05/24 06:15 Parainfluenza 3 (PCR) Not detected (NOT DETECT) 07/05/24 06:15 Parainfluenza 4 (PCR) Not detected (NOT DETECT) 07/05/24 06:15 RSV Type A (PCR) Not detected (NOT DETECT) 07/05/24 06:15 RSV Type B (PCR) Not detected (NOT DETECT) 07/05/24 06:15 Entero/Rhino (PCR) Not detected (NOT DETECT) 07/05/24 06:15 SARS-CoV-2 (PCR) Not detected (NOT DETECT) 07/05/24 06:15 Vitals Last Vital Signs Temp 97.8 F 07/06/24 15:53 Pulse 62 07/06/24 15:53 Resp 18 07/06/24 15:53 BP 161/84 07/06/24 15:53 Pulse Ox 97 07/06/24 15:53 O2 Del Method Room Air 07/06/24 15:53 Discharge Plan Discharge Patient Disposition: Home Condition: Stable Prescriptions: New polyethylene glycol 3350 17 gram Powder In Packet 17 g PO BID Qty: 90 0RF Continued carvedilol 25 mg Tablet 25 mg PO BID Rx Instructions: must administer with a meal/food pantoprazole 40 mg Tablet,Delayed Release (Dr/Ec) 40 mg PO DAILY ergocalciferol (vitamin D2) [Vitamin D2] 1,250 mcg (50,000 unit) Capsule 1,250 mcg PO DAILY losartan 100 mg Tablet 100 mg PO DAILY Discontinued hydrochlorothiazide 12.5 mg Capsule 12.5 mg PO DAILY Discharge Orders: Discharge Order (Routine); Ordered 07/06/24 Ordered By: Oleg Saldana Referrals: Francisco Alberts MD [Primary Care Provider] - 4-7 days Discharge Diet: Advance as tolerated, As Directed and Low Cholesterol Discharge Activity: Increase activity as tolerated Patient Instructions: Bowel Obstruction (GEN), Back Pain (ED), Opioid Safety Activity Restrictions/Additional Instructions: Follow-up with primary care. Advance diet slowly, gradually with multiple small meals through the day. Avoid constipation, dehydration. Stop HCTZ for now until reassessed by primary provider and found no longer at risk of dehydration. Follow-up with your primary doctor for assessment of incidentally found small left lower lung nodule. Additionally follow-up with your primary doctor regarding incidentally found fatty liver disease. Please maintain low-cholesterol diet. Please attempt to lose weight, follow-up with your primary doctor regarding help with weight loss options. Avoid any alcohol. Avoid NSAIDs. Discharge Attestations Time Spent in Discharge Care*: greater than 30 min Quality Metrics Clinical Quality Measures [ No reported AMI, CVA or VTE this stay] Coding Level of Care Code 10364 Total time (in minutes) for Discharge: 50 Diagnoses SBO (small bowel obstruction) K56.609
--- NOTE | 2024-07-06 19:22 | PC.NURSE ---
Discussed discharge with patient and spouse. Discussed follow up appointments, new medications, diet advancement and to stay hydrated. Continue to ambulate at home. Patient verbalized understanding.
[2024-07-06 19:24] VITALS: BP 161/84; PULSE 62; RESP 18; TEMP 36.6; O2SAT 97
== END 2024-07-06 18:24 | disposition home or self-care (01) | DRG 390 ==
LOC: ER 07-05 01:41 → MEDSURG 07-05 06:53
PROVIDERS: Nurse Practitioner Family; Admitting Provider Internal Medicine; Emergency Provider Emergency Medicine; PCP Family Medicine; Visit Provider Internal Medicine
DX: K56.600 Partial intestinal obstruction, unspecified as to cause (principal); Z90.49 Acquired absence of other specified parts of digestive tract; K57.90 Diverticulosis of intestine, part unspecified, without perforation or abscess without bleeding; E66.01 Morbid (severe) obesity due to excess calories; Z68.39 Body mass index [BMI] 39.0-39.9, adult; E87.6 Hypokalemia; R91.1 Solitary pulmonary nodule; K76.0 Fatty (change of) liver, not elsewhere classified
CPT/HCPCS: 36415; 71045; 74177; 80048; 80053; 81001; 83690; 83735; 85025; 87486; 87581; 87633; 96365; 96366; 96372; 96375; 99285; J1644; J2405; J2470; J3480; J7030; J7042